=== PATIENT | male | born 1935 | race Caucasian/White ===

== ENCOUNTER → 2019-05-10 10:03 | Outpatient (CLI) | payer MEDICARE, OTHER ==
[2016-08-04 17:45] VITALS: BMI 26.5
[~2019-05-10 10:03] MED LIST: CLARITIN 10 MG10 MG PO; COZAAR100 MG PO; FLAXSEED OIL1000 MG PO; FLUTICASONE PRO16 GM NASAL; KLOR-CON M2020 MEQ PO; NORVASC5 MG PO; PAROXETINE HCL10 MG PO; PRILOSEC10 M1 PO
--- NOTE | 2019-05-14 13:08 | EC ---
PATIENT:TOREY ROJAS DATE OF SERVICE: 05/10/19 SEX: M MEDICAL RECORD: [id number] DATE OF : 33 [facility] AGE OF PATIENT: 84 ADMISSION DATE: 05/10/19 REFERRING PHYSICIAN: INTERPRETING PHYSICIAN: OANH BUTT MD ECHOCARDIOGRAM REPORT ECHO CHARGES 4 ECHO COMPLETE Date: 05/10/19 CLINICAL DIAGNOSIS: HTN HX OF PACEMAKER ECHOCARDIOGRAPHIC MEASUREMENTS (adult normal given) AC root (d.<3.7cm) 3.2 cm LV Septum d (<1.2 cm> 1.4 cm Valve Excursion 1.7 cm LV Septum (systole) 1.6 cm Left Atria (s.<4.0cm> 3.8 cm LVPW d(<1.2cm) 1.6 cm RV (d.<2.3cm) 3.1 cm LVPW (sytole) 2.0 cm LV diastole(<5.6CM) 4.3 cm MV E-F(>70mm/sec) cm LV systole 2.9 cm LVOT Diameter 2.0 cm MV exc.(>10mm) 1.4 cm Est.ejection fraction (50-75%) % DOPPLER: LVIT cm/sec A 120 cm/sec E 72.0 cm/sec LA cm/sec RVSP 18 mmHg LVOT 126 cm/sec AOP1/2T 488 m/s Asc. Ao 160 cm/sec RVOT 90 cm/sec RA cm/sec PA 110 cm/sec AV Gradient Peak 10.24mmHg AV Mean 5.01 mmHg AV Area 2.7 cm MV Gradient Peak 6.94 mmHg MV Mean 2.71 mmHg MV Area cm COMMENTS: Retail Salesperson: 2 SHAGUFTA CHENEY Contact Printer Dry Film: 3 Dr. Squires TAPE# PACS Pericardial Effusion N DATE OF SERVICE: Adequate 2D, color flow, spectral Doppler, and M-Mode. Mild LVH. LV internal dimension was normal. Wall motion is normal. EF is greater than or equal to 55%. Aortic valve is sclerosed without stenosis by Doppler interrogation. Left atrium is normal at 3.8 cm. Mitral valve shows no prolapse. Trace MR. Right-sided chambers are grossly normal. Trace TR. TRANSINT:[id number] Voice Confirmation ID: [id number] DOCUMENT ID: [id number] ECHOCARDIOGRAM REPORT [id number] ROJAS,TOREYOANH SHOEMAKER MD at 1308 CC: [id number] DICTATION DATE: 05/13/19 1528 INTERNET DESIGNER: 05/14/19 0117 DEP CLI 05/10/19 [id number] [place] [address]
== END | disposition home or self-care (01) ==
LOC: D.HCCECHO 10:03 → D.HCCARDIO 10:30 → D.HCCECHO 10:30
PROVIDERS: ATTEND Internal Medicine Interventional Cardiology
DX: I10 Essential (primary) hypertension (principal)